=== PATIENT | male | born 1985 | race Caucasian/White ===

== ENCOUNTER 2016-12-27 21:38 | Emergency (ER) | payer BC ==
[2016-12-27 21:51] VITALS: BP 178/85
--- NOTE | 2016-12-27 22:42 | EDM.PDOC ---
ED HPI GENERAL MEDICAL PROBLEM - General Chief Complaint: Head Injury Stated Complaint: HEAD INJURY Time Seen by Provider: 12/27/16 22:09 Source of Information: Reports: Patient, Family (), RN Notes Reviewed History Limitations: Reports: No Limitations - History of Present Illness INITIAL COMMENTS - FREE TEXT/NARRATIVE: The patient states that he was playing a softball around 20:30 tonight, that he rounded first, and was then struck on his left ear by a softball thrown by another player. He was knocked down, but not knocked unconscious. He presents with swelling and an abrasion to his left lower ear. He denies decreased hearing, but reports some tinnitus in his left ear. He also reports that he had some transient vision loss in his right eye following the injury. The patient does not have a PCP. Left Ear Pain Score (Numeric/FACES): 8 - Related Data Allergies Allergy/AdvReac Type Severity Reaction Status Date / Time No Known Allergies Allergy Verified 12/27/16 22:43 Past Medical History - Past Surgical History GI Surgical History: Reports: Appendectomy Male Surgical History: Reports: Vasectomy Social & Family History - Tobacco Use Smoking Status *Q: Never Smoker - Caffeine Use Caffeine Use: Reports: Coffee, Energy Drinks, Soda - Alcohol Use Alcohol Use History: Yes Alcohol Use Frequency: Socially - Recreational Drug Use Recreational Drug Use: No - Living Situation & Occupation Living situation: Reports: , with Spouse, with Family (3 kids) Occupation: Employed ([employer]) ED ROS GENERAL - Review of Systems Review Of Systems: See Below Constitutional: Reports: No Symptoms HEENT: Reports: No Symptoms Respiratory: Reports: No Symptoms Cardiovascular: Reports: No Symptoms Endocrine: Reports: No Symptoms GI/Abdominal: Reports: No Symptoms : Reports: No Symptoms Musculoskeletal: Reports: No Symptoms Skin: Reports: No Symptoms Neurological: Reports: No Symptoms Psychiatric: Reports: No Symptoms Hematologic/Lymphatic: Reports: No Symptoms Immunologic: Reports: No Symptoms ED EXAM, HEAD INJURY - Physical Exam Exam: See Below Exam Limited By: No Limitations General Appearance: Alert, WD/WN, No Apparent Distress Head: Atraumatic, Normocephalic Eyes: Bilateral Eye: EOMI, Normal Inspection, PERRL Ears: Normal Canal, Hearing Grossly Normal, Normal TMs, Other (Mildly bleeding abrasion to the left earlobe and the inferior helix, with associated swelling to the earlobe area) Nose: Normal Inspection, Normal Mucousa, No Blood Throat/Mouth: Normal Inspection, Normal Lips, Normal Teeth, Normal Gums, Normal Oropharynx, Normal Voice, No Airway Compromise Neck: Full Range of Motion, Normal Alignment, Normal Inspection Respiratory: No Respiratory Distress, Lungs Clear, Normal Breath Sounds, No Accessory Muscle Use Cardiovascular: Normal Peripheral Pulses, Regular Rate, Rhythm, No Gallop, No JVD, No Murmur, No Rub GI/Abdominal Exam (Abbreviated): Normal Bowel Sounds, Soft, Non-Tender, No Organomegaly, No Distention, No Abnormal Bruit, No Mass (Male) Exam: Deferred Rectal (Males) Exam: Deferred Back Exam: Full Range of Motion, Normal Inspection, NT Extremities: No Evidence of Injury, Normal Range of Motion Neurologic: mlt II-XII nml As Tested, No Motor/Sensory Deficits, Alert, Oriented x 3 Skin: Normal Color, Warm/Dry Course - Vital Signs Last Recorded V/S: Last Vital Signs Temp 37.0 C 12/27/16 21:46 Pulse 75 12/27/16 21:46 Resp 16 12/27/16 21:46 BP 178/85 H 12/27/16 21:46 Pulse Ox 99 12/27/16 21:46 - Re-Assessments/Exams Free Text/Narrative Re-Assessment/Exam: 12/27/16 22:39 The patient suffered an abrasion to the inferior aspect of his left auricle when he was struck with a thrown softball tonight. No laceration that requires suturing. I'm recommending he keep it clean with ordinary soap and water, then apply a thin smear of bacitracin. It should heal well. Ibuprofen as needed for discomfort. Departure - Departure Time of Disposition: 22:39 Disposition: Home, Self-Care 01 Condition: good Clinical Impression: Abrasion of left ear - Discharge Information Instructions: Abrasion, [id number] Referrals: PCP,None [Primary Care Provider] - Krystina Fuentes PA-C [Physician Human Resources Operations Specialist] - Forms: ED Department Discharge Additional Instructions: You were seen in the emergency room after being struck on your left ear by a thrown softball. On examination, you have an abrasion to the lower part of your external left ear. We recommend you keep the area clean with ordinary soap and water, then apply a thin smear of bacitracin ointment, daily. Take [id number] ibuprofen as needed for discomfort. Followup with Krystina Fuentes in the clinic, as needed. If any other problems, please do not hesitate to return to the ER.
== END 2016-12-27 22:54 | disposition home or self-care (01) ==
LOC: JD.ED 21:38
DX: S00.412A Abrasion of left ear, initial encounter (principal); Z90.49 Acquired absence of other specified parts of digestive tract; X58.XXXA Exposure to other specified factors, initial encounter; W21.07XA Struck by softball, initial encounter
CPT/HCPCS: 99282; 99284